=== PATIENT | female | born 1945 | race Caucasian/White ===

== ENCOUNTER → 2024-05-25 10:15 | Outpatient (REF) | payer OTHER, SELFPAY | LOC: RCS 10:15 | PROVIDERS: ATTENDING PHYSICIAN Internal Medicine Cardiovascular Disease; FAMILY PHYSICIAN Family Medicine | DX: I35.0 Nonrheumatic aortic (valve) stenosis (principal); R00.2 Palpitations | CPT/HCPCS: 93225; 93226 ==

== ENCOUNTER → 2024-06-10 14:23 | Outpatient (REF) | payer OTHER, SELFPAY | LOC: RCS 14:23 | PROVIDERS: ATTENDING PHYSICIAN Internal Medicine Cardiovascular Disease; FAMILY PHYSICIAN Family Medicine | DX: I35.0 Nonrheumatic aortic (valve) stenosis (principal); R00.2 Palpitations | CPT/HCPCS: 93306 ==

== ENCOUNTER → 2024-10-06 12:24 | Outpatient (REF) | payer OTHER, SELFPAY | LOC: RCS 12:24 | PROVIDERS: ATTENDING PHYSICIAN Internal Medicine Cardiovascular Disease; FAMILY PHYSICIAN Family Medicine | DX: I49.3 Ventricular premature depolarization (principal) | CPT/HCPCS: 93225; 93226 ==

== ENCOUNTER 2025-06-22 11:04 | Emergency (ER) | payer OTHER, SELFPAY ==
[2025-06-22 11:06] VITALS: BP 160/91
--- NOTE | 2025-06-22 11:23 | ED.GENMED ---
History of Present Illness
General
Chief Complaint: Skin Problem
Source: patient and spouse
Exam Limitations: none
Time Seen by Provider: 06/22/25 11:12
History of Present Illness
History of Present Illness:
80yoF with a history of type 2 diabetes, dementia, hypertension, and hyperlipidemia presenting with her for evaluation of toe redness. Patient reports a wound/blister to the bottom of the left great toe. She is unsure when exactly it
started and states she is an unreliable historian due to her dementia. No trauma. She went to see a shoe associate who started her on Keflex 500mg BID x 10 days which she has been compliant with. She started the antibiotic 2 days ago. The
redness has seemed to spread and they decided to come to the ED for evaluation. Patient is otherwise asymptomatic and denies any fevers, chills, drainage. No prior history of MRSA.
Past History
Past History
ED Past Medical History: Asthma, HTN, Hypercholesterolemia, NIDDM and Other (Colon polyp, diabetic neuropathy, type 2 diabetes, chronic low back pain with steroid injections last February 2018, thyroid nodule, pulmonary nodule)
ED Past Surgical History: and Gynecological
Social History
Tobacco: Non-smoker
Alcohol: None
Drug: None
Personal:
Living: with family
Employment: Retired
Family History
Family History: Other (Her mother has diabetes)
Phy Exam
General Physical Exam
General Presentation: well appearing and no apparent distress
General Skin: warm and dry
General Habitus: normal and elderly
General Mental: alert
ENT Exam
ENT Exam: normocephalic
Pulmonary Exam
Pulmonary Exam: no respiratory distress
Neurological Exam
Neurological Exam: alert
Skin Exam
Skin Exam: warm/dry and other (Wound noted to the plantar aspect of the L great toe with localized surrounding erythema that does not extend past the IP joint. Mildly tender to touch. No fluctuance, drainage, crepitus, or pain out of proportion. 2+
DP pulse.)
Psychiatric Exam
Psychiatric Exam: normal mood/affect
Course
Orders/Labs/Results
Orders:
Orders
06/22/25 11:22
CR Toe(s) Min 2 Vw Left Urgent
Comment:
Reason For Exam: great toe wound
06/22/25 12:09
CRP [C-Reactive Protein] Urgent
Complete Blood Count/With Diff Urgent
Comprehensive Metabolic Panel Urgent
ESR [Erythrocyte Sed Rate] Urgent
Abnormal Lab Results
06/22/25
12:09
Hgb 10.9 L g/dL
(12.0-16.0)
Hct 34.5 L %
(37.0-47.0)
MCV 78.1 L fL
(81.0-99.0)
MCH 24.7 L pg
(27.0-31.0)
MCHC 31.6 L g/dL
(33.0-37.0)
ESR 61 H mm/hour
(0-20)
Sodium 134 L mmol/L
(135-145)
Carbon Dioxide 31 H mmol/L
(22-30)
BUN 24 H mg/dl
(7-17)
Glucose 133 H mg/dl
(70-99)
06/22/25 12:09
06/22/25 12:09
Vital Signs
Initial and Last Documented VS:
Initial Vital Signs
Temp Pulse Resp BP Pulse Ox
97.6 F 106 20 160/91 96
06/22/25 11:06 06/22/25 11:06 06/22/25 11:06 06/22/25 11:06 06/22/25 11:06
Last Documented Vital Signs
Temp Pulse Resp BP Pulse Ox
97.6 F 84 19 136/78 95
06/22/25 11:06 06/22/25 13:45 06/22/25 13:45 06/22/25 13:00 06/22/25 13:45
MDM/Problems Addressed
Differential Diagnosis Includes:
80yoF here with L great toe redness. Started on Keflex BID 2 days ago. Here with spreading redness. Localized erythema on exam that does not extend past the IP joint. No fluctuance or drainage. No crepitus or pain out of proportion. HR 106 in
triage. Temp 97.6. Differential diagnosis includes: Diabetic foot ulcer, cellulitis, osteomyelitis, no clinical evidence of abscess, no clinical evidence of NSTI
Initial ED plan: Check CBC, CMP, ESR/CRP, and left toe x-rays.
*Pulse Oximetry
SaO2: 96
Oxygen Mode of Delivery: Room air
Patient hypoxic: no
*Critical Care Note
Total Time (30-74mins, 75-104mins- exclusive of procedures): Not Applicable
Update Note
Update Note:
White count within normal limits. Glucose 133. ESR is elevated at 61 although unclear significance as CRP is less than 5. X-rays do not show any evidence of osteomyelitis or soft tissue gas. Patient not meeting any SIRS criteria. D/w Dr. Blank.
Patient underdosed on Keflex and only taking 500mg BID. Will increase to QID and monitor for response. Patient scheduled to see podiatry again in 5 days. Strict ED return precautions discussed. Daughter in agreement with plan and she was
discharged in stable condition.
ED Attending Note
-
Portions of this chart may have been created with voice recognition software.� Occasional wrong word or��sound alike� substitutions may have occurred due to the inherent limitations of voice recognition software.
Discharge Plan
Departure
Patient Disposition: Home (Routine Discharge)
Date of Disposition: 06/22/25
Time of Disposition: 13:52
Patient with high blood pressure during this ER visit?: Yes
Discharge Problem:
Cellulitis of great toe of left foot
Instructions: Cellulitis (Skin Infection), Adult (DC)
Prescriptions:
New
cephalexin 500 mg capsule
500 mg PO QID 7 Days Qty: 28 0RF
No Action
repaglinide 2 MG tablet
2 mg PO AC
atorvastatin 10 MG tablet
10 mg PO QPM
cyanocobalamin (vitamin B-12) 1,000 MCG tablet
1,000 mcg PO DAILY
metformin 1,000 MG tablet
1,000 mg PO BID
gabapentin 300 MG capsule
600 mg PO BID
sertraline 25 MG tablet
25 mg PO HS
montelukast 10 MG tablet
10 mg PO DAILY
albuterol sulfate [Ventolin HFA] 90 MCG/PUFF HFA aerosol inhaler
2 puff inhalation Q4H PRN (Reason: prn)
nnqjbdko-dpm-BA-lycopen-lutein [Centrum Silver] 1 EACH tablet
1 ea PO DAILY
aspirin [Adult Aspirin Regimen] 81 MG tablet,delayed release (DR/EC)
81 mg PO DAILY
lisinopril 5 MG tablet
5 mg PO DAILY Qty: 30 0RF
nitrofurantoin monohyd/m-cryst 100 MG capsule
100 mg PO BID 5 Days Qty: 10 0RF
ondansetron 4 MG tablet,disintegrating
4 mg PO TIDPRN PRN (Reason: nausea) Qty: 20 0RF
ondansetron 4 MG tablet,disintegrating
4 mg PO TIDPRN PRN (Reason: nausea/vomiting) Qty: 12 0RF
ondansetron 4 MG tablet,disintegrating
4 mg PO TIDPRN PRN (Reason: nausea/vomiting) Qty: 10 0RF
Referrals:
UNKNOWN - PT NOT,INTERVIEWE [Family Provider]
Activity Restrictions/Additional Instructions:
Increase cephalexin (antibiotic) to 4 times daily.
Please follow-up with your shoe associate with the neck 72 hours. Return to the ER with any worsening symptoms including spreading redness or fevers.
Interventions
Interventions:
*Risk Screen - Suicide Last Done: 06/22/25 11:57
*General Assessment Last Done: 06/22/25 11:57
*Neglect/Abuse Screening Last Done: 06/22/25 11:57
*ED- Fall Risk Assessment Last Done: 06/22/25 11:57
*ED COVID-19 Vaccine History Last Done: 06/22/25 11:57
*ED Influenza Vaccine History Last Done: 06/22/25 11:57
*Nursing Disposition Last Done: 06/22/25 14:32
ED-Skin Assessment Last Done: 06/22/25 11:57
Discharge Date and Time
Discharge Date/Time: 06/22/25 14:34
Print Language: GREENLANDIC
[2025-06-22 11:56] VITALS: BP 142/73; BMI 28.3
[2025-06-22 12:00] VITALS: BP 146/77
[2025-06-22 12:23] LABS: Hematocrit 34.5 % (37.0-47.0); Hemoglobin 10.9 g/dL (12.0-16.0); Mean Corp Hgb Conc. 31.6 g/dL (33.0-37.0); Mean Corpuscular Volume 78.1 fL (81.0-99.0); Nucleated Red Blood Cells % 0 %; Platelet Count 258 10^3/uL (130-400); Red Cell Dist. Width 13.4 % (11.5-14.5)
[2025-06-22 12:39] LABS: ALT (SGPT) 17 U/L (0-35); AST (SGOT) 16 U/L (14-36); Albumin 4.2 g/dl (3.5-5.0); Alkaline Phosphatase 82 U/L (38-126); Blood Urea Nitrogen 24 mg/dl (7-17); Calcium 9.6 mg/dl (8.4-10.2); Carbon Dioxide 31 mmol/L (22-30); Chloride 98 mmol/L (98-107); Estimated Creatinine Clearance 51 ml/min; Glucose 133 mg/dl (70-99); Potassium 4.4 mmol/L (3.5-5.1); Sodium 134 mmol/L (135-145); Total Protein 7.7 g/dl (6.3-8.2); eGFR > 60.00
[2025-06-22 12:42] LABS: C-Reactive Protein < 5.00 mg/L (0.0-10.00)
[2025-06-22 13:00] VITALS: BP 136/78
== END 2025-06-22 14:34 | disposition home or self-care (01) ==
LOC: EMR 11:04
PROVIDERS: Physician Assistant; EMERGENCY PHYSICIAN Student in an Organized Health Care Education/Training Program
DX: L03.032 Cellulitis of left toe (principal); E11.40 Type 2 diabetes mellitus with diabetic neuropathy, unspecified; E78.00 Pure hypercholesterolemia, unspecified; F03.90 Unspecified dementia, unspecified severity, without behavioral disturbance, psychotic disturbance, mood disturbance, and anxiety; I10 Essential (primary) hypertension; J45.909 Unspecified asthma, uncomplicated; G89.29 Other chronic pain
CPT/HCPCS: 99284; 73660; 80053; 85025; 85652; 86140

== ENCOUNTER 2025-07-19 08:56 | Emergency (ER) | payer OTHER, SELFPAY ==
[2025-07-19 08:57] VITALS: BP 182/102
[2025-07-19 09:22] LABS: Hematocrit 35.1 % (37.0-47.0); Hemoglobin 11.0 g/dL (12.0-16.0); Mean Corp Hgb Conc. 31.3 g/dL (33.0-37.0); Mean Corpuscular Volume 80.1 fL (81.0-99.0); Nucleated Red Blood Cells % 0 %; Platelet Count 231 10^3/uL (130-400); Red Cell Dist. Width 13.6 % (11.5-14.5)
[2025-07-19 09:50] LABS: ALT (SGPT) 17 U/L (0-35); AST (SGOT) 20 U/L (14-36); Albumin 4.2 g/dl (3.5-5.0); Alkaline Phosphatase 80 U/L (38-126); Blood Urea Nitrogen 23 mg/dl (7-17); Calcium 8.9 mg/dl (8.4-10.2); Chloride 98 mmol/L (98-107); Glucose 131 mg/dl (70-99); Potassium 4.5 mmol/L (3.5-5.1); Sodium 137 mmol/L (135-145); Total Protein 7.3 g/dl (6.3-8.2); eGFR > 60.00
[2025-07-19 09:54] LABS: C-Reactive Protein < 5.00 mg/L (0.0-10.00)
--- NOTE | 2025-07-19 10:35 | EDRN ---
Dr. Unger in room w/ pt at this time.
--- NOTE | 2025-07-19 10:40 | ED.GENMED ---
History of Present Illness
General
Chief Complaint: Extremity Pain (non-traumatic)
Source: patient, spouse and family
Time Seen by Provider: 07/19/25 10:23
History of Present Illness
History of Present Illness:
80-year-old female brought to the emergency room for evaluation of redness and swelling of her right great toe. Patient has been under the care of one of her local solutions architect, Dr. Caballero. An MRI was ordered to further evaluate for osteo. The
patient has already been on a couple courses of oral antibiotics. Evidently the family's been having difficulty scheduling the MRI with appointments offered 2 to 3 weeks away. They were concerned this will be too long prompting their visit to the
ER. The patient is tolerating oral intake. She has no fever or chills.
Past History
Past History
ED Past Medical History: Asthma, HTN, Hypercholesterolemia, NIDDM and Other (Colon polyp, diabetic neuropathy, type 2 diabetes, chronic low back pain with steroid injections last February 2018, thyroid nodule, pulmonary nodule)
ED Past Surgical History: and Gynecological
Social History
Tobacco: Non-smoker
Alcohol: None
Drug: None
Personal:
Living: with family
Employment: Retired
Family History
Family History: Other (Her mother has diabetes)
Phy Exam
Physical Exam
Physical Exam:
General: Awake, Alert, Oriented X3. No acute distress.
Vitals: unremarkable
Head: Atraumatic
Eyes: Pupils equal, EOMI
Throat: Airway intact, no exudates
Neck: Trachea midline
Lungs: Clear and equal b/l
Heart: Regular rate, no murmurs
Abd: Soft, Nontender, No pulsatile mass
Neuro: Nonfocal
Skin: Warm, dry, no rash
Extremities: pulses equal b/l, left great toe noted to have a quite erythematous, somewhat tender there is a open wound on the plantar surface of the great toe.
Course
Orders/Labs/Results
Orders:
Orders
07/19/25 09:07
CRP [C-Reactive Protein] Urgent
Complete Blood Count/With Diff Urgent
Comprehensive Metabolic Panel Urgent
Erythrocyte Sed Rate Urgent
Abnormal Lab Results
07/19/25
09:07
Hgb 11.0 L g/dL
(12.0-16.0)
Hct 35.1 L %
(37.0-47.0)
MCV 80.1 L fL
(81.0-99.0)
MCH 25.1 L pg
(27.0-31.0)
MCHC 31.3 L g/dL
(33.0-37.0)
Absolute Monos (auto) 0.7 H 10^3/uL
(0.1-0.6)
ESR 38 H mm/hour
(0-20)
Carbon Dioxide 31 H mmol/L
(22-30)
BUN 23 H mg/dl
(7-17)
Glucose 131 H mg/dl
(70-99)
07/19/25 09:07
07/19/25 09:07
Vital Signs
Initial and Last Documented VS:
Initial Vital Signs
Temp Pulse Resp BP Pulse Ox
97.6 F 103 18 182/102 97
07/19/25 08:57 07/19/25 08:57 07/19/25 08:57 07/19/25 08:57 07/19/25 08:57
Last Documented Vital Signs
Temp Pulse Resp BP Pulse Ox
97.6 F 89 16 159/93 97
07/19/25 08:57 07/19/25 11:03 07/19/25 11:03 07/19/25 11:03 07/19/25 11:03
MDM/Problems Addressed
Differential Diagnosis Includes:
Cellulitis, osteomyelitis
MDM/Problems Addressed:
Patient presents with what seems to be subacute to chronic. No indication for emergent MRI here. Patient does not appear to require hospitalization. I have made calls to our MRI department as well as [facility]. We discussed the steps
necessary to expedite an MRI. Patient will be discharged home. I also communicated with the patient's solutions architect, Dr. Gabriel who will help facilitate the authorization process and scheduling.
*Pulse Oximetry
SaO2: 97
Oxygen Mode of Delivery: Room air
Patient hypoxic: no
*Critical Care Note
Total Time (30-74mins, 75-104mins- exclusive of procedures): Not Applicable
ED Attending Note
-
Portions of this chart may have been created with voice recognition software.� Occasional wrong word or��sound alike� substitutions may have occurred due to the inherent limitations of voice recognition software.
Discharge Plan
Departure
Patient Disposition: Home (Routine Discharge)
Date of Disposition: 07/19/25
Time of Disposition: 11:09
Patient with high blood pressure during this ER visit?: Yes
Condition: Good
Discharge Problem:
Pain of left great toe
Instructions: BLOOD PRESSURE
Prescriptions:
No Action
repaglinide 2 MG tablet
2 mg PO AC
atorvastatin 10 MG tablet
10 mg PO QPM
cyanocobalamin (vitamin B-12) 1,000 MCG tablet
1,000 mcg PO DAILY
metformin 1,000 MG tablet
1,000 mg PO BID
gabapentin 300 MG capsule
600 mg PO BID
sertraline 25 MG tablet
25 mg PO HS
montelukast 10 MG tablet
10 mg PO DAILY
albuterol sulfate [Ventolin HFA] 90 MCG/PUFF HFA aerosol inhaler
2 puff inhalation Q4H PRN (Reason: prn)
yieapxiv-kkz-XS-lycopen-lutein [Centrum Silver] 1 EACH tablet
1 ea PO DAILY
aspirin [Adult Aspirin Regimen] 81 MG tablet,delayed release (DR/EC)
81 mg PO DAILY
lisinopril 5 MG tablet
5 mg PO DAILY Qty: 30 0RF
nitrofurantoin monohyd/m-cryst 100 MG capsule
100 mg PO BID 5 Days Qty: 10 0RF
ondansetron 4 MG tablet,disintegrating
4 mg PO TIDPRN PRN (Reason: nausea) Qty: 20 0RF
ondansetron 4 MG tablet,disintegrating
4 mg PO TIDPRN PRN (Reason: nausea/vomiting) Qty: 12 0RF
ondansetron 4 MG tablet,disintegrating
4 mg PO TIDPRN PRN (Reason: nausea/vomiting) Qty: 10 0RF
cephalexin 500 mg capsule
500 mg PO QID 7 Days Qty: 28 0RF
Referrals:
Preet Dean MD [Family Provider, Family Practice]
Activity Restrictions/Additional Instructions:
Dr Caballero's office will get the MRI authorized to be performed here at [facility]. Next, make an appointment, even if it seems to be too far off. Once scheduled tell Dr. Caballero's office and they can request the MRI department move it
up.
Return to the emergency room if this is greatly develops a fever or the entire foot becomes red and swollen
Interventions
Interventions:
*Risk Screen - Suicide Last Done: 07/19/25 10:57
*General Assessment Last Done: 07/19/25 10:57
*Neglect/Abuse Screening Last Done: 07/19/25 11:00
*ED COVID-19 Vaccine History Last Done: 07/19/25 10:57
*ED Influenza Vaccine History Last Done: 07/19/25 10:57
[facility] Fall Risk Assessment Tool Last Done: 07/19/25 10:57
*Nursing Disposition Last Done: 07/19/25 11:31
ED-Skin Assessment Last Done: 07/19/25 11:00
ED-Peripheral Vascular Assessment Last Done: 07/19/25 11:00
ED-Musculoskeletal Assessment Last Done: 07/19/25 11:00
Discharge Date and Time
Discharge Date/Time: 07/19/25 11:31
Print Language: OMANI
[2025-07-19 10:48] LABS: Carbon Dioxide 31 mmol/L (22-30)
[2025-07-19 10:57] VITALS: BMI 29.2
[2025-07-19 11:03] VITALS: BP 159/93
== END 2025-07-19 11:31 | disposition home or self-care (01) ==
LOC: EMR 08:56
PROVIDERS: Emergency Medicine; EMERGENCY PHYSICIAN Emergency Medicine; FAMILY PHYSICIAN Family Medicine
DX: M79.675 Pain in left toe(s) (principal); E11.40 Type 2 diabetes mellitus with diabetic neuropathy, unspecified; E78.00 Pure hypercholesterolemia, unspecified; G89.29 Other chronic pain; I10 Essential (primary) hypertension; J45.909 Unspecified asthma, uncomplicated
CPT/HCPCS: 99283; 80053; 85025; 85652; 86140

== ENCOUNTER → 2025-07-22 10:17 | Outpatient (REF) | payer OTHER, SELFPAY | LOC: MRI 3T 10:17 | PROVIDERS: ATTENDING PHYSICIAN Podiatrist; FAMILY PHYSICIAN Family Medicine | DX: M86.9 Osteomyelitis, unspecified (principal) | CPT/HCPCS: 73721 ==